=== PATIENT | female | born 2000 | race Caucasian/White ===

== ENCOUNTER → 2022-02-27 | Outpatient (CLI) | payer BC ==
[2022-02-27 23:28] LABS: Prolactin 54.2 ng/mL (2.800-29.200); T4, Free (Free Thyroxine) 0.8 ng/dL (0.830-1.430)
[2022-02-28 00:39] LABS: Basophils # (A) 0.03 X 10*3/uL (0.00-0.10); Basophils % (A) 0.4 %; Eosinophils # (A) 0.21 X 10*3/uL (0.04-0.35); Eosinophils % (A) 3.1 %; HCT 38.6 % (37.2-46.3); HGB 11.7 g/dL (12.0-15.0); Lymphocytes # (A) 1.24 X 10*3/uL (0.90-5.00); Lymphocytes % (A) 18.2 %; MCH 27.1 pg (27.0-32.0); MCHC 30.3 g/dL (32.0-37.0); MCV 89.6 fL (80.0-97.0); Mean Platelet Volume 9.6 fL (9.5-12.2); Monocytes # (A) 0.58 X 10*3/uL (0.20-1.00); Monocytes % (A) 8.5 %; NRBC Per 100 WBC 0 /100 WBCS (0.0-0.0); Neutrophils # (A) 4.67 X 10*3/uL (1.80-7.70); Neutrophils % (A) 68.8 %; Platelet Count 283 X 10*3/uL (140-440); RBC 4.31 X 10*6/uL (4.10-5.20); RDW 14.6 % (11.5-14.5)
== END | disposition home or self-care (01) ==
LOC: LABWHC1 11:53
PROVIDERS: ATTEND Registered Nurse
DX: F84.0 Autistic disorder (principal); R00.0 Tachycardia, unspecified; Z79.899 Other long term (current) drug therapy
CPT/HCPCS: 36415; 80175; 84146; 84439; 84443; 85025; 93005